=== PATIENT | male | born 1990 | race Hispanic/Latino ===

== ENCOUNTER 2018-08-20 13:43 | Inpatient (IN) | payer SELFPAY ==
--- NOTE | 2018-08-20 14:12 | Emergency Department Report ---
ED Syncope HPI - General Chief Complaint: Syncope Stated Complaint: SYNCOPAL EPISODE Time Seen by Provider: 08/20/18 14:01 Source: patient - History of Present Illness Initial Comments: Patient is 28 years old male with history of sciatica no other significant past medical history. Patient presented to the ER complaining of one episode of syncopal episode that happened while he was visiting one of his family member in the hospital. Patient denied any headache, weakness, numbness or tingling sensation. Patient denied any chest pain or shortness of breath. Patient stated that he has been having right knee swelling for the last week. Patient denied any injury. Timing/Prior Episodes: no prior history, single episode today Precipitating Factors: Positive: none Context: standing Loss of Consciousness: no loss of consciousness Current Symptoms: back to normal - Related Data Allergies/Adverse Reactions: Allergies No Known Allergies Allergy (Verified 08/20/18 15:39) Home Medications: Ambulatory Orders No Known Home Medications [No Reported Home Medications] 08/20/18 ED Review of Systems ROS: Stated complaint: SYNCOPAL EPISODE Other details as noted in HPI Comment: All other systems reviewed and negative Constitutional: denies: chills, fever Cardiovascular: denies: chest pain, palpitations Gastrointestinal: denies: abdominal pain, nausea Musculoskeletal: joint swelling (right knee). denies: back pain Neurological: denies: headache, weakness, numbness, paresthesias, confusion ED Past Medical Hx - Past Medical History Previous Medical History?: No - Surgical History Past Surgical History?: Yes Additional Surgical History: knee - Social History Smoking Status: Never Smoker Substance Use Type: None - Medications Home Medications: Home Medications Medication Instructions Recorded Confirmed Last Taken Type No Known Home Medications [No 08/20/18 08/20/18 Unknown History Reported Home Medications] ED Physical Exam - General Limitations: No Limitations General appearance: alert, in no apparent distress - Head Head exam: Present: atraumatic, normocephalic, normal inspection - Eye Eye exam: Present: normal appearance, PERRL - ENT ENT exam: Present: normal exam, normal orophraynx, mucous membranes moist, TM's normal bilaterally - Neck Neck exam: Present: normal inspection, full ROM. Absent: tenderness, meningismus, lymphadenopathy, thyromegaly - Respiratory Respiratory exam: Present: normal lung sounds bilaterally - Cardiovascular Cardiovascular Exam: Present: regular rate, normal rhythm, normal heart sounds - GI/Abdominal GI/Abdominal exam: Present: soft, normal bowel sounds. Absent: distended, tenderness, guarding, rebound, rigid, organomegaly, mass, bruit, pulsatile mass, hernia - Extremities Exam Extremities exam: Present: normal inspection, full ROM, normal capillary refill, other (right knee swelling, full range of motion.) - Back Exam Back exam: Present: normal inspection, full ROM. Absent: tenderness, CVA tenderness (R), CVA tenderness (L), muscle spasm, paraspinal tenderness, vertebral tenderness - Neurological Exam Neurological exam: Present: alert, oriented X3, CN II-XII intact - Psychiatric Psychiatric exam: Present: normal mood - Skin Skin exam: Present: warm, intact, normal color ED Course Vital Signs 08/20/18 13:50 Temperature 98 F Pulse Rate 87 Respiratory 16 Rate Blood Pressure 113/65 O2 Sat by Pulse 97 Oximetry - Joint Aspiration/Injection Consent Obtained: written consent Time Out Performed: Yes Indications: R/O septic arthritis Side of Body: right Joint Aspirated: knee Skin Prep: sterile prep and drape Local Anesthesia Used: Lidocaine 2% Amount of Anesthesia Used (mls): 5 Needle Size Used: 18G Syringe Size Used: 10cc Fluid Obtained: bloody Total Fluid Obtained (mls): 0 Patient Tolerated Procedure: well, no complications Complications: none ED Medical Decision Making - Lab Data Result diagrams: 08/20/18 14:10 08/20/18 14:10 - Radiology Data Radiology results: report reviewed - Medical Decision Making Patient is 28 years old male with history of sciatica no other significant past medical history. Patient presented to the ER complaining of one episode of syncopal episode that happened while he was visiting one of his family member in the hospital. Patient denied any headache, weakness, numbness or tingling sensation. Patient denied any chest pain or shortness of breath. Patient stated that he has been having right knee swelling for the last week. Patient denied any injury. Patient labs reviewed any cell white count of 18.9. Given his right knee swelling possibility of septic arthritis. Right knee joints or peripheral respiration but unfortunately unable to obtain synovial fluid. Patient given vancomycin 1 g and Rocephin 1 g. I discussed the patient is Dr. Umaña, he agreed to admit the patient to medical service for further management. Critical care attestation.: If time is entered above; I have spent that time in minutes in the direct care of this critically ill patient, excluding procedure time. ED Disposition Clinical Impression: Syncope, Septic arthritis of knee, right Disposition: [id number] OP ADMIT IP TO THIS HOSP Is pt being admited?: Yes Condition: Stable Instructions: Syncope (ED)
[2018-08-20 14:21] LABS: Basophils # (Auto) 0.1 K/mm3 (0.0-0.1); Basophils % (Auto) 0.3 % (0.0-1.8); Eosinophils # (Auto) 0.1 K/mm3 (0.0-0.4); Eosinophils % (Auto) 0.4 % (0.0-4.3); Hematocrit 42.1 % (35.5-45.6); Hemoglobin 14.1 gm/dl (11.8-15.2); Lymphocytes # (Auto) 1.6 K/mm3 (1.2-5.4); Lymphocytes % (Auto) 8.7 % (13.4-35.0); Mean Corpuscular HGB Conc 34 % (32-34); Mean Corpuscular Volume 96 fl (84-94); Monocytes # (Auto) 2.8 K/mm3 (0.0-0.8); Platelet Count 272 K/mm3 (140-440); Red Blood Count 4.37 M/mm3 (3.65-5.03); Red Cell Distribution Width 12.8 % (13.2-15.2)
[2018-08-20 14:38] LABS: BUN/Creatinine Ratio 20; Blood Urea Nitrogen 22 mg/dL (9-20); Calcium 9.3 mg/dL (8.4-10.2); Hemolysis Index 6
--- NOTE | 2018-08-20 14:40 | XRay Report ---
PROCEDURE: XR KNEE 3V RT TECHNIQUE: 3 views of the right knee. HISTORY: RT KNEE SWELLING COMPARISON: None FINDINGS: There is anterior soft tissue swelling. There is no acute fracture seen. There is no dislocation seen. There is no evidence for joint effusion. There is no focal osseous lesion identified. IMPRESSION: Anterior soft tissue swelling. No convincing joint effusion or bony abnormality. This document is electronically signed by Casie Moore MD., Aug 20 2018 02:39:13 PM ET
[2018-08-20] MEDS ORDERED: ROCEPHIN/NS 1 GM/50 ML 1 GM/50 ML BAG IV ONE (15:37)
[2018-08-20] MEDS ORDERED: VANCOMYCIN/NS 1 GM/250 ML 1 GM/250 ML BAG IV ONE (15:37)
[2018-08-20] MEDS ORDERED: NACL 0.9% 1000 ML 1,000 ML IV ONE (15:38)
[2018-08-20] MEDS ORDERED: XYLOCAINE 2% INFILTRATI ONE (16:13)
[2018-08-20 16:22] LABS: Bilirubin,Urine NEG (Negative); Blood,Urine NEG (Negative); Color,Urine Yellow (Yellow); Mucus,Urine 2+ /HPF; Protein,Urine <15 mg/dL mg/dL (Negative); RBC,Urine < 1.0 /HPF (0.0-6.0); Urobilinogen,Urine < 2.0 mg/dL (<2.0)
[2018-08-20 16:29] LABS: Amphetamine Screen,Urine PRESUMPTIVE NEGATIVE; Benzodiazepines Screen,Urine PRESUMPTIVE NEGATIVE; Cocaine Screen,Urine PRESUMPTIVE NEGATIVE; Opiate Screen,Urine PRESUMPTIVE NEGATIVE
[2018-08-20 16:54] LABS: Cannabinoid Screen,Urine PRESUMPTIVE POSITIVE; Methadone Screen,Urine PRESUMPTIVE NEGATIVE
--- NOTE | 2018-08-20 19:45 | History and Physical Report ---
History of Present Illness Date of examination: 08/20/18 Date of admission: 08/20/18 16:40 Chief complaint: Rt knee pain and swelling History of present illness: Patient is 28 years old male with nosig pmh comes in for Rt Knee swelling.Works as renovation specialist.Minor trauma to knee recuirrently whish is work related.No fever or chills. Incidentalsyncope while visiting a friend in the hospital which he attributes to Dehydration.No chest pain.Pain Rt Knee about 11/19 --sharp and intermittent Past Medical History Previous Medical History?: No Surgical History Past Surgical History?: Yes Additional Surgical History: knee Social History Smoking Status: Never Smoker Substance Use Type: None Review of Systems ROS: Stated complaint: SYNCOPAL EPISODE Other details as noted in HPI Comment: All other systems reviewed and negative Constitutional: denies: chills, fever Cardiovascular: denies: chest pain, palpitations Gastrointestinal: denies: abdominal pain, nausea Musculoskeletal: joint swelling (right knee). denies: back pain Neurological: denies: headache, weakness, numbness, paresthesias, confusion Medications and Allergies Allergies Allergy/AdvReac Type Severity Reaction Status Date / Time No Known Allergies Allergy Verified 08/20/18 15:39 Home Medications Medication Instructions Recorded Confirmed Last Taken Type No Known Home Medications [No 08/20/18 08/20/18 Unknown History Reported Home Medications] Exam - Constitutional Vitals: Temp Pulse Resp BP Pulse Ox 99.1 F 89 18 106/53 96 08/20/18 18:45 08/20/18 18:45 08/20/18 18:45 08/20/18 18:45 08/20/18 18:45 General appearance: Present: no acute distress, well-nourished - EENT Eyes: Present: PERRL ENT: hearing intact, clear oral mucosa - Neck Neck: Present: supple, normal ROM - Respiratory Respiratory effort: normal Respiratory: bilateral: CTA - Cardiovascular Heart rate: 78 Rhythm: regular Heart Sounds: Present: S1 & S2. Absent: rub, click - Extremities Extremities: no ischemia, pulses intact, pulses symmetrical, No edema, abnormal (Rt knee swollen and warm to touch) Peripheral Pulses: within normal limits - Abdominal General gastrointestinal: Present: soft, non-tender, non-distended, normal bowel sounds Male genitourinary: Present: normal - Integumentary Integumentary: Present: clear, warm, dry - Musculoskeletal Musculoskeletal: gait normal, strength equal bilaterally - Psychiatric Psychiatric: appropriate mood/affect, intact judgment & insight - Neurologic Neurologic: CNII-XII intact, moves all extremities Results - Labs CBC & Chem 7: 08/21/18 05:46 08/20/18 14:10 Labs: Laboratory Last Values WBC 18.9 K/mm3 (4.5-11.0) H 08/20/18 14:10 RBC 4.37 M/mm3 (3.65-5.03) 08/20/18 14:10 Hgb 14.1 gm/dl (11.8-15.2) 08/20/18 14:10 Hct 42.1 % (35.5-45.6) 08/20/18 14:10 MCV 96 fl (84-94) H 08/20/18 14:10 MCH 32 pg (28-32) 08/20/18 14:10 MCHC 34 % (32-34) 08/20/18 14:10 RDW 12.8 % (13.2-15.2) L 08/20/18 14:10 Plt Count 272 K/mm3 (140-440) 08/20/18 14:10 Lymph % (Auto) 8.7 % (13.4-35.0) L 08/20/18 14:10 [place] % (Auto) 15.0 % (0.0-7.3) H 08/20/18 14:10 Eos % (Auto) 0.4 % (0.0-4.3) 08/20/18 14:10 Baso % (Auto) 0.3 % (0.0-1.8) 08/20/18 14:10 Lymph # 1.6 K/mm3 (1.2-5.4) 08/20/18 14:10 [place] # 2.8 K/mm3 (0.0-0.8) H 08/20/18 14:10 Eos # 0.1 K/mm3 (0.0-0.4) 08/20/18 14:10 Baso # 0.1 K/mm3 (0.0-0.1) 08/20/18 14:10 Seg Neutrophils % 75.6 % (40.0-70.0) H 08/20/18 14:10 Seg Neutrophils # 14.3 K/mm3 (1.8-7.7) H 08/20/18 14:10 Sodium 138 mmol/L (137-145) 08/20/18 14:10 Potassium 3.9 mmol/L (3.6-5.0) 08/20/18 14:10 Chloride 99.8 mmol/L (98-107) 08/20/18 14:10 Carbon Dioxide 26 mmol/L (22-30) 08/20/18 14:10 16 mmol/L 08/20/18 14:10 BUN 22 mg/dL (9-20) H 08/20/18 14:10 1.1 mg/dL (0.8-1.5) 08/20/18 14:10 Estimated GFR > 60 ml/min 08/20/18 14:10 20 % 08/20/18 14:10 Glucose 97 mg/dL (75-100) 08/20/18 14:10 POC Glucose 87 (70-105) 08/20/18 13:54 Calcium 9.3 mg/dL (8.4-10.2) 08/20/18 14:10 Yellow (Yellow) 08/20/18 Unknown Slightly-cloudy (Clear) 08/20/18 Unknown 5.0 (5.0-7.0) 08/20/18 Unknown Ur Specific [place] 1.023 (1.003-1.030) 08/20/18 Unknown <15 mg/dl mg/dL (Negative) 08/20/18 Unknown Neg mg/dL (Negative) 08/20/18 Unknown Neg mg/dL (Negative) 08/20/18 Unknown Neg (Negative) 08/20/18 Unknown Neg (Negative) 08/20/18 Unknown Neg (Negative) 08/20/18 Unknown < 2.0 mg/dL (<2.0) 08/20/18 Unknown Ur Leukocyte Esterase Neg (Negative) 08/20/18 Unknown 1.0 /HPF (0.0-6.0) 08/20/18 Unknown < 1.0 /HPF (0.0-6.0) 08/20/18 Unknown 2+ /HPF 08/20/18 Unknown Presumptive negative 08/20/18 Unknown Presumptive negative 08/20/18 Unknown Ur Barbiturates Screen Presumptive negative 08/20/18 Unknown Ur Phencyclidine Scrn Presumptive negative 08/20/18 Unknown Ur Amphetamines Screen Presumptive negative 08/20/18 Unknown U Benzodiazepines Scrn Presumptive negative 08/20/18 Unknown Presumptive negative 08/20/18 Unknown U Marijuana (THC) Screen Presumptive positive 08/20/18 Unknown Disclamer 08/20/18 Unknown Short CBC 08/20/18 08/21/18 Range/Units 14:10 05:46 WBC 18.9 H 14.2 H (4.5-11.0) K/mm3 Hgb 14.1 13.9 (11.8-15.2) gm/dl Hct 42.1 41.7 (35.5-45.6) % Plt Count 272 272 (140-440) K/mm3 BMP 08/20/18 14:10 Sodium 138 Potassium 3.9 Chloride 99.8 Carbon Dioxide 26 BUN 22 H Creatinine 1.1 Glucose 97 Calcium 9.3 Urine 08/20/18 Range/Units Unknown Urine Color Yellow (Yellow) Urine pH 5.0 (5.0-7.0) Ur Specific [place] 1.023 (1.003-1.030) Urine Protein <15 mg/dl (Negative) mg/dL Urine Glucose (UA) Neg (Negative) mg/dL - Imaging and Cardiology EKG: report reviewed (NSR 90/min) Imaging and Cardiology: Rt Knee IMPRESSION: Anterior soft tissue swelling. No convincing joint effusion or bony abnormality. Assessment and Plan Advance Directives: Yes (Full code) VTE prophylaxis?: Chemical Plan of care discussed with patient/family: Yes - Patient Problems (1) Septic arthritis of knee, right Current Visit: Yes Status: Acute Qualifiers: Septic arthritis organism: due to unspecified organism Qualified Code(s): M00.9 - Pyogenic arthritis, unspecified Plan to address problem: Arthrocentesis attempted in ED by ED physician-unsuccessful IV abx for now Ortho consult requested (2) Syncope Current Visit: Yes Status: Acute Qualifiers: Encounter type: initial encounter Plan to address problem: Vasovagal CDS ordered IV fluids (3) DVT prophylaxis Current Visit: Yes Status: Acute Plan to address problem: On Lovenox and GI prophylaxis
[2018-08-20] MEDS ORDERED: ZOFRAN IV PRN (19:47)
[2018-08-20] MEDS ORDERED: REGLAN IV PRN (19:47)
[2018-08-20] MEDS ORDERED: TYLENOL PO PRN (19:47)
[2018-08-20] MEDS ORDERED: VANCOMYCIN PHARMACY TO DOSE IV SCH (20:00)
[2018-08-20] MEDS: DILAUDID IV PRN (20:29)
[2018-08-20] MEDS: SODIUM CHLORIDE FLUSH SYRINGE 10 ML IV PRN (20:30)
[2018-08-20] MEDS: NACL 0.9% 1000 ML 1,000 ML IV SCH (21:28)
[2018-08-20] MEDS: PEPCID IV SCH (21:29)
[2018-08-20] MEDS: UNASYN/NS 3 GM/100 ML 3 GM/100 ML BAG IV SCH (21:55)
[2018-08-20] MEDS: SODIUM CHLORIDE FLUSH SYRINGE 10 ML IV SCH (22:00)
[2018-08-21] MEDS: DILAUDID IV PRN ×2 (00:02→10:37)
[2018-08-21] MEDS: UNASYN/NS 3 GM/100 ML 3 GM/100 ML BAG IV SCH ×4 (01:32→17:47)
[2018-08-21] MEDS: PERCOCET 5/325 PO PRN ×3 (06:17→21:57)
[2018-08-21 06:35] LABS: Hematocrit 41.7 % (35.5-45.6); Hemoglobin 13.9 gm/dl (11.8-15.2); Mean Corpuscular HGB Conc 33 % (32-34); Mean Corpuscular Volume 96 fl (84-94); Platelet Count 272 K/mm3 (140-440); Red Blood Count 4.36 M/mm3 (3.65-5.03)
[2018-08-21 06:59] LABS: Alanine Aminotransferase 21 units/L (7-56); Albumin 3.6 g/dL (3.9-5); BUN/Creatinine Ratio 17; Blood Urea Nitrogen 17 mg/dL (9-20); Calcium 9.4 mg/dL (8.4-10.2); Hemolysis Index 5
[2018-08-21 08:03] LABS: Basophils % (Manual) 0 % (0.0-1.8); Total Cells Counted 100
[2018-08-21 08:07] LABS: Anisocytosis 1+; Macrocytosis 1+; Ovalocytes Few; Platelet Estimate Consistent w Auto
[2018-08-21] MEDS: PEPCID IV SCH ×2 (10:23→21:58)
[2018-08-21] MEDS: SODIUM CHLORIDE FLUSH SYRINGE 10 ML IV SCH ×2 (10:40→23:05)
[2018-08-21] MEDS: VANCOMYCIN 1,500 MG in NACL 0.9% 500 ML 500 ML IV SCH ×2 (14:21→21:48)
--- NOTE | 2018-08-21 18:18 | Progress Note ---
Assessment and Plan Assessment and plan: --Syncope; probably vasovagal; Fall precautions, syncope workup in progress Physical therapy as needed --Possible traumatic versus septic effusion right knee; Empiric antibiotics, pain medications, unsuccessful arthrocentesis in the ER Orthopedic consult --Leukocytosis; empiric antibiotics follow cultures Follow arthrocentesis and fluid analysis --DVT prophylaxis; Lovenox --Tobacco use; smoking cessation nicotine patch as needed --Recreational drug use; marijuana, advised to quit Closely monitor the patient and adjust management as needed Plan of care is reviewed with the patient and his nurse History Interval history: Patient seen and examined this morning medical records reviewed Complaints of some pain in the knee and swelling No new episodes of syncope or dizziness Vital signs noted Hospitalist Physical - Constitutional Vitals: Temp Pulse Resp BP Pulse Ox 98.2 F 79 18 120/69 97 08/21/18 11:58 08/21/18 11:58 08/21/18 11:58 08/21/18 11:58 08/21/18 11:58 General appearance: Present: no acute distress, well-nourished - EENT Eyes: Present: PERRL, EOM intact - Neck Neck: Present: supple, normal ROM - Respiratory Respiratory effort: normal Respiratory: bilateral: diminished, negative: rales, rhonchi, wheezing - Cardiovascular Rhythm: regular Heart Sounds: Present: S1 & S2 - Extremities Extremities: abnormal (right knee swelling) - Abdominal General gastrointestinal: soft, non-tender, non-distended, normal bowel sounds - Integumentary Integumentary: Present: clear, warm - Psychiatric Psychiatric: appropriate mood/affect, cooperative - Neurologic Neurologic: CNII-XII intact, moves all extremities Results - Labs CBC & Chem 7: 08/22/18 05:53 08/21/18 05:46 Labs: Laboratory Last Values WBC 14.2 K/mm3 (4.5-11.0) H 08/21/18 05:46 RBC 4.36 M/mm3 (3.65-5.03) 08/21/18 05:46 Hgb 13.9 gm/dl (11.8-15.2) 08/21/18 05:46 Hct 41.7 % (35.5-45.6) 08/21/18 05:46 MCV 96 fl (84-94) H 08/21/18 05:46 MCH 32 pg (28-32) 08/21/18 05:46 MCHC 33 % (32-34) 08/21/18 05:46 RDW 13.0 % (13.2-15.2) L 08/21/18 05:46 Plt Count 272 K/mm3 (140-440) 08/21/18 05:46 Lymph % (Auto) 8.7 % (13.4-35.0) L 08/20/18 14:10 [place] % (Auto) [employer]ic 08/21/18 05:46 Eos % (Auto) 0.4 % (0.0-4.3) 08/20/18 14:10 Baso % (Auto) 0.3 % (0.0-1.8) 08/20/18 14:10 Lymph # 1.6 K/mm3 (1.2-5.4) 08/20/18 14:10 [place] # 2.8 K/mm3 (0.0-0.8) H 08/20/18 14:10 Eos # 0.1 K/mm3 (0.0-0.4) 08/20/18 14:10 Baso # 0.1 K/mm3 (0.0-0.1) 08/20/18 14:10 Add Manual Diff Complete 08/21/18 05:46 Total Counted 100 08/21/18 05:46 Seg Neutrophils % 75.6 % (40.0-70.0) H 08/20/18 14:10 Seg Neuts % (Manual) 72.0 % (40.0-70.0) H 08/21/18 05:46 0 % 08/21/18 05:46 6.0 % (13.4-35.0) L 08/21/18 05:46 Reactive Lymphs % (Man) 0 % 08/21/18 05:46 20.0 % (0.0-7.3) H 08/21/18 05:46 2.0 % (0.0-4.3) 08/21/18 05:46 0 % (0.0-1.8) 08/21/18 05:46 0 % 08/21/18 05:46 0 % 08/21/18 05:46 0 % 08/21/18 05:46 0 % 08/21/18 05:46 Nucleated RBC % Not Reportable 08/21/18 05:46 Seg Neutrophils # 14.3 K/mm3 (1.8-7.7) H 08/20/18 14:10 Seg Neutrophils # Man 10.2 K/mm3 (1.8-7.7) H 08/21/18 05:46 Band Neutrophils # 0.0 K/mm3 08/21/18 05:46 0.9 K/mm3 (1.2-5.4) L 08/21/18 05:46 Abs React Lymphs (Man) 0.0 K/mm3 08/21/18 05:46 2.8 K/mm3 (0.0-0.8) H 08/21/18 05:46 0.3 K/mm3 (0.0-0.4) 08/21/18 05:46 0.0 K/mm3 (0.0-0.1) 08/21/18 05:46 0.0 K/mm3 08/21/18 05:46 0.0 K/mm3 08/21/18 05:46 0.0 K/mm3 08/21/18 05:46 Blast Cells # 0.0 K/mm3 08/21/18 05:46 WBC Morphology Not Reportable 08/21/18 05:46 WBC Morphology TNR 08/21/18 05:46 Hypersegmented Neuts Not Reportable 08/21/18 05:46 Hyposegmented Neuts Not Reportable 08/21/18 05:46 Hypogranular Neuts Not Reportable 08/21/18 05:46 Not Reportable 08/21/18 05:46 Not Reportable 08/21/18 05:46 Not Reportable 08/21/18 05:46 Not Reportable 08/21/18 05:46 Not Reportable 08/21/18 05:46 Not Reportable 08/21/18 05:46 Consistent w auto 08/21/18 05:46 Not Reportable 08/21/18 05:46 Plt Clumps, EDTA Not Reportable 08/21/18 05:46 Not Reportable 08/21/18 05:46 Not Reportable 08/21/18 05:46 Not Reportable 08/21/18 05:46 Plt Morphology Comment Not Reportable 08/21/18 05:46 RBC Morphology Not Reportable 08/21/18 05:46 Dimorphic RBCs Not Reportable 08/21/18 05:46 Not Reportable 08/21/18 05:46 Not Reportable 08/21/18 05:46 Not Reportable 08/21/18 05:46 1+ 08/21/18 05:46 Not Reportable 08/21/18 05:46 1+ 08/21/18 05:46 Not Reportable 08/21/18 05:46 Not Reportable 08/21/18 05:46 Not Reportable 08/21/18 05:46 Not Reportable 08/21/18 05:46 Not Reportable 08/21/18 05:46 Few 08/21/18 05:46 Not Reportable 08/21/18 05:46 Not Reportable 08/21/18 05:46 Not Reportable 08/21/18 05:46 Not Reportable 08/21/18 05:46 Not Reportable 08/21/18 05:46 Not Reportable 08/21/18 05:46 Not Reportable 08/21/18 05:46 Acanthocytes (Spur) Not Reportable 08/21/18 05:46 Rouleaux Not Reportable 08/21/18 05:46 Not Reportable 08/21/18 05:46 Not Reportable 08/21/18 05:46 Not Reportable 08/21/18 05:46 Not Reportable 08/21/18 05:46 Hem Pathologist Commnt No 08/21/18 05:46 Sodium 143 mmol/L (137-145) 08/21/18 05:46 Potassium 3.8 mmol/L (3.6-5.0) 08/21/18 05:46 Chloride 103.7 mmol/L (98-107) 08/21/18 05:46 Carbon Dioxide 28 mmol/L (22-30) 08/21/18 05:46 15 mmol/L 08/21/18 05:46 BUN 17 mg/dL (9-20) 08/21/18 05:46 1.0 mg/dL (0.8-1.5) 08/21/18 05:46 Estimated GFR > 60 ml/min 08/21/18 05:46 17 % 08/21/18 05:46 Glucose 97 mg/dL (75-100) 08/21/18 05:46 POC Glucose 87 (70-105) 08/20/18 13:54 5.7 % (4-6) 08/20/18 20:09 Calcium 9.4 mg/dL (8.4-10.2) 08/21/18 05:46 0.50 mg/dL (0.1-1.2) 08/21/18 05:46 AST 20 units/L (5-40) 08/21/18 05:46 ALT 21 units/L (7-56) 08/21/18 05:46 86 units/L (35-129) 08/21/18 05:46 6.4 g/dL (6.3-8.2) 08/21/18 05:46 3.6 g/dL (3.9-5) L 08/21/18 05:46 1.3 % 08/21/18 05:46 Yellow (Yellow) 08/20/18 Unknown Slightly-cloudy (Clear) 08/20/18 Unknown 5.0 (5.0-7.0) 08/20/18 Unknown Ur Specific [place] 1.023 (1.003-1.030) 08/20/18 Unknown <15 mg/dl mg/dL (Negative) 08/20/18 Unknown Neg mg/dL (Negative) 08/20/18 Unknown Neg mg/dL (Negative) 08/20/18 Unknown Neg (Negative) 08/20/18 Unknown Neg (Negative) 08/20/18 Unknown Neg (Negative) 08/20/18 Unknown < 2.0 mg/dL (<2.0) 08/20/18 Unknown Ur Leukocyte Esterase Neg (Negative) 08/20/18 Unknown 1.0 /HPF (0.0-6.0) 08/20/18 Unknown < 1.0 /HPF (0.0-6.0) 08/20/18 Unknown 2+ /HPF 08/20/18 Unknown Presumptive negative 08/20/18 Unknown Presumptive negative 08/20/18 Unknown Ur Barbiturates Screen Presumptive negative 08/20/18 Unknown Ur Phencyclidine Scrn Presumptive negative 08/20/18 Unknown Ur Amphetamines Screen Presumptive negative 08/20/18 Unknown U Benzodiazepines Scrn Presumptive negative 08/20/18 Unknown Presumptive negative 08/20/18 Unknown U Marijuana (THC) Screen Presumptive positive 08/20/18 Unknown Disclamer 08/20/18 Unknown Active Medications - Current Medications Current Medications: Generic Name Dose Route Start Last Admin Trade Name Freq PRN Reason Stop Dose Admin Acetaminophen 650 mg 08/20/18 19:47 Tylenol PO Q4H PRN Pain MILD(1-3)/Fever >100.5/JHA Famotidine 20 mg 08/20/18 22:00 08/21/18 10:23 Pepcid IV 20 mg BID MILLIE Administration Hydromorphone HCl 1 mg 08/21/18 12:41 Dilaudid IV Q6HR PRN Pain , Severe (7-10) Sodium Chloride 1,000 mls @ 75 mls/hr 08/20/18 20:00 08/20/18 21:28 Nacl 0.9% 1000 Ml IV 75 mls/hr DIRECT MILLIE Administration Ampicillin Sodium/Sulbactam Sodium 3 gm in 100 mls @ 100 mls/hr 08/20/18 20:00 08/21/18 17:47 Unasyn/Ns 3 Gm/100 Ml IV 100 mls/hr Q6HR MILLIE Administration Protocol Vancomycin HCl 1,500 mg/ 530 mls @ 333.333 mls/hr 08/21/18 14:00 08/21/18 14:21 Sodium Chloride IV 333.333 mls/hr Q8HR MILLIE Administration Metoclopramide HCl 10 mg 08/20/18 19:47 Reglan IV Q6H PRN Nausea And Vomiting Ondansetron HCl 4 mg 08/20/18 19:47 Zofran IV Q3H PRN Nausea And Vomiting Oxycodone/Acetaminophen 1 tab 08/20/18 19:47 08/21/18 12:46 Percocet 5/325 PO 1 tab Q6H PRN Administration Pain, Moderate (4-6) Sodium Chloride 10 ml 08/20/18 22:00 08/21/18 10:40 Sodium Chloride Flush Syringe 10 Ml IV 10 ml BID MILLIE Administration Sodium Chloride 10 ml 08/20/18 19:47 08/20/18 20:30 Sodium Chloride Flush Syringe 10 Ml IV 10 ml PRN PRN Administration LINE FLUSH
[2018-08-21] MEDS: NACL 0.9% 1000 ML 1,000 ML IV SCH (21:46)
[2018-08-22] MEDS: UNASYN/NS 3 GM/100 ML 3 GM/100 ML BAG IV SCH ×4 (01:20→19:40)
[2018-08-22] MEDS: VANCOMYCIN 1,500 MG in NACL 0.9% 500 ML 500 ML IV SCH ×3 (06:15→21:55)
[2018-08-22 06:26] LABS: Hematocrit 39.1 % (35.5-45.6); Hemoglobin 13.2 gm/dl (11.8-15.2); Mean Corpuscular HGB Conc 34 % (32-34); Mean Corpuscular Volume 96 fl (84-94); Platelet Count 253 K/mm3 (140-440); Red Blood Count 4.07 M/mm3 (3.65-5.03); Red Cell Distribution Width 12.8 % (13.2-15.2)
[2018-08-22] MEDS: DILAUDID IV PRN ×3 (06:39→19:47)
[2018-08-22] MEDS: SODIUM CHLORIDE FLUSH SYRINGE 10 ML IV PRN (06:40)
[2018-08-22 09:57] LABS: Anisocytosis Few; Basophils % (Manual) 0 % (0.0-1.8); Platelet Estimate Consistent w Auto; Promyelocytes # (Manual) 0.1 K/mm3; Total Cells Counted 100
[2018-08-22] MEDS: PEPCID IV SCH ×2 (12:05→21:55)
[2018-08-22] MEDS: SODIUM CHLORIDE FLUSH SYRINGE 10 ML IV SCH ×2 (12:09→21:55)
--- NOTE | 2018-08-22 17:50 | Consultation ---
History of Present Illness - HPI Consult date: 08/22/18 Consult reason: joint pain History of present illness: 29 y/o male with c/o right pain and swelling for past 1 wk, states sustained minor injury at work... Medications and Allergies Allergies Allergy/AdvReac Type Severity Reaction Status Date / Time No Known Allergies Allergy Verified 08/20/18 15:39 Home Medications Medication Instructions Recorded Confirmed Last Taken Type No Known Home Medications [No 08/20/18 08/20/18 Unknown History Reported Home Medications] Active Meds: Active Medications Acetaminophen (Tylenol) 650 mg PO Q4H PRN PRN Reason: Pain MILD(1-3)/Fever >100.5/JHA Famotidine (Pepcid) 20 mg IV BID [facility] Last Admin: 08/22/18 12:05 Dose: 20 mg Documented by: Hydromorphone HCl (Dilaudid) 1 mg IV Q6HR PRN PRN Reason: Pain , Severe (7-10) Last Admin: 08/22/18 13:32 Dose: 1 mg Documented by: Sodium Chloride (Nacl 0.9% 1000 Ml) 1,000 mls @ 75 mls/hr IV DIRECT MILLIE Last Admin: 08/21/18 21:46 Dose: 75 mls/hr Documented by: Ampicillin Sodium/Sulbactam Sodium (Unasyn/Ns 3 Gm/100 Ml) 3 gm in 100 mls @ 100 mls/hr IV Q6HR [facility]; Protocol Last Admin: 08/22/18 12:04 Dose: 100 mls/hr Documented by: Vancomycin HCl 1,500 mg/ (Sodium Chloride) 530 mls @ 333.333 mls/hr IV Q8HR MILLIE Last Admin: 08/22/18 17:03 Dose: 333.333 mls/hr Documented by: Metoclopramide HCl (Reglan) 10 mg IV Q6H PRN PRN Reason: Nausea And Vomiting Ondansetron HCl (Zofran) 4 mg IV Q3H PRN PRN Reason: Nausea And Vomiting Oxycodone/Acetaminophen (Percocet 5/325) 1 tab PO Q6H PRN PRN Reason: Pain, Moderate (4-6) Last Admin: 08/21/18 21:57 Dose: 1 tab Documented by: Sodium Chloride (Sodium Chloride Flush Syringe 10 Ml) 10 ml IV BID [facility] Last Admin: 08/22/18 12:09 Dose: 10 ml Documented by: Sodium Chloride (Sodium Chloride Flush Syringe 10 Ml) 10 ml IV PRN PRN PRN Reason: LINE FLUSH Last Admin: 08/22/18 06:40 Dose: 10 ml Documented by: Physical Examination - Physical exam Narrative exam: Right knee - 2-3 + effusion, no redness/erythema, active ROM 0-70 degree Eyes: PERRL ENT: Positive: clear oral mucosa Respiratory effort: normal Respiratory: bilateral: CTA Rhythm: regular Heart Sounds: Positive: S1 & S2 General gastrointestinal: Positive: soft, non-tender, non-distended, normal bowel sounds Integumentary: clear, warm, dry Neurologic: Positive: CNII-XII intact, moves all extremities, gait normal. Negative: focal deficits - Cervical Spine Neck pain: none Tenderness with palpation: none Full ROM: yes ROM: flexion: normal ROM: extension: normal ROM: rotation right: normal ROM: rotation left: normal ROM: lateral flexion right: normal ROM: lateral flexion left: normal - Lumbar Spine Back pain: none Tenderness with palpation: none Appearance: normal Full ROM: yes ROM: flexion: normal ROM: extension: normal ROM: rotation right: normal ROM: rotation left: normal ROM: lateral flexion right: normal ROM: lateral flexion left: normal Assessment and Plan right knee pain with large effusion aspiration done at bedside today with return of bloody aspirate fluid sent for cell count, C&S, etc...
--- NOTE | 2018-08-22 19:11 | Progress Note ---
Assessment and Plan Assessment and plan: --Syncope; probably vasovagal; no new episodes of syncope Fall precautions, ambulate as tolerated --Possible traumatic versus septic effusion right knee; Empiric antibiotics, pain medications, unsuccessful arthrocentesis in the ER Orthopedic evaluation, possible arthrocentesis and fluid analysis --Leukocytosis; trending down, empiric antibiotics follow cultures Follow arthrocentesis and fluid analysis --DVT prophylaxis; Lovenox --Tobacco use; smoking cessation nicotine patch as needed --Recreational drug use; marijuana, advised to quit Closely monitor the patient and adjust management as needed Plan of care reviewed with the patient and the family member at the bedside I also discussed with his nurse Disposition; Follow arthrocentesis, fluid analysis Possible discharge in 1-2 days if stable History Interval history: Patient seen and examined and medical records reviewed Admitted with traumatic knee effusion On empiric antibiotics to rule out septic arthritis Patient feels slightly better still complains of pain Vital signs noted Hospitalist Physical - Constitutional Vitals: Temp Pulse Resp BP Pulse Ox 98.3 F 84 20 116/80 96 08/22/18 12:25 08/22/18 05:29 08/22/18 12:25 08/22/18 12:25 08/22/18 11:00 General appearance: Present: no acute distress, well-nourished - EENT Eyes: Present: PERRL, EOM intact - Neck Neck: Present: supple, normal ROM - Respiratory Respiratory effort: normal Respiratory: bilateral: diminished, negative: rales, rhonchi, wheezing - Cardiovascular Rhythm: regular Heart Sounds: Present: S1 & S2 - Extremities Extremities: no ischemia, abnormal (large effusion right knee, mild tenderness to touch) - Abdominal General gastrointestinal: soft, non-tender, non-distended, normal bowel sounds - Integumentary Integumentary: Present: clear, warm - Psychiatric Psychiatric: appropriate mood/affect, cooperative - Neurologic Neurologic: CNII-XII intact, moves all extremities Results - Labs CBC & Chem 7: 08/22/18 05:53 08/21/18 05:46 Labs: Laboratory Last Values WBC 12.5 K/mm3 (4.5-11.0) H 08/22/18 05:53 RBC 4.07 M/mm3 (3.65-5.03) 08/22/18 05:53 Hgb 13.2 gm/dl (11.8-15.2) 08/22/18 05:53 Hct 39.1 % (35.5-45.6) 08/22/18 05:53 MCV 96 fl (84-94) H 08/22/18 05:53 MCH 33 pg (28-32) H 08/22/18 05:53 MCHC 34 % (32-34) 08/22/18 05:53 RDW 12.8 % (13.2-15.2) L 08/22/18 05:53 Plt Count 253 K/mm3 (140-440) 08/22/18 05:53 Lymph % (Auto) 8.7 % (13.4-35.0) L 08/20/18 14:10 Esmeralda % (Auto) [employer] 08/22/18 05:53 Eos % (Auto) 0.4 % (0.0-4.3) 08/20/18 14:10 Baso % (Auto) 0.3 % (0.0-1.8) 08/20/18 14:10 Lymph # 1.6 K/mm3 (1.2-5.4) 08/20/18 14:10 [place]mer[place]da # 2.8 K/mm3 (0.0-0.8) H 08/20/18 14:10 Eos # 0.1 K/mm3 (0.0-0.4) 08/20/18 14:10 Baso # 0.1 K/mm3 (0.0-0.1) 08/20/18 14:10 Add Manual Diff Complete 08/22/18 05:53 Total Counted 100 08/22/18 05:53 Seg Neutrophils % 75.6 % (40.0-70.0) H 08/20/18 14:10 Seg Neuts % (Manual) 75.0 % (40.0-70.0) H 08/22/18 05:53 0 % 08/22/18 05:53 15.0 % (13.4-35.0) 08/22/18 05:53 Reactive Lymphs % (Man) 0 % 08/22/18 05:53 6.0 % (0.0-7.3) 08/22/18 05:53 3.0 % (0.0-4.3) 08/22/18 05:53 0 % (0.0-1.8) 08/22/18 05:53 0 % 08/22/18 05:53 0 % 08/22/18 05:53 1.0 % 08/22/18 05:53 0 % 08/22/18 05:53 Nucleated RBC % Not Reportable 08/22/18 05:53 Seg Neutrophils # 14.3 K/mm3 (1.8-7.7) H 08/20/18 14:10 Seg Neutrophils # Man 9.4 K/mm3 (1.8-7.7) H 08/22/18 05:53 Band Neutrophils # 0.0 K/mm3 08/22/18 05:53 1.9 K/mm3 (1.2-5.4) 08/22/18 05:53 Abs React Lymphs (Man) 0.0 K/mm3 08/22/18 05:53 0.8 K/mm3 (0.0-0.8) 08/22/18 05:53 0.4 K/mm3 (0.0-0.4) 08/22/18 05:53 0.0 K/mm3 (0.0-0.1) 08/22/18 05:53 0.0 K/mm3 08/22/18 05:53 0.0 K/mm3 08/22/18 05:53 0.1 K/mm3 08/22/18 05:53 Blast Cells # 0.0 K/mm3 08/22/18 05:53 WBC Morphology Not Reportable 08/22/18 05:53 Hypersegmented Neuts Not Reportable 08/22/18 05:53 Hyposegmented Neuts Not Reportable 08/22/18 05:53 Hypogranular Neuts Not Reportable 08/22/18 05:53 Not Reportable 08/22/18 05:53 Not Reportable 08/22/18 05:53 Not Reportable 08/22/18 05:53 Not Reportable 08/22/18 05:53 Not Reportable 08/22/18 05:53 Not Reportable 08/22/18 05:53 Consistent w auto 08/22/18 05:53 Not Reportable 08/22/18 05:53 Plt Clumps, EDTA Not Reportable 08/22/18 05:53 Not Reportable 08/22/18 05:53 Not Reportable 08/22/18 05:53 Not Reportable 08/22/18 05:53 Plt Morphology Comment Not Reportable 08/22/18 05:53 RBC Morphology Not Reportable 08/22/18 05:53 Dimorphic RBCs Not Reportable 08/22/18 05:53 Not Reportable 08/22/18 05:53 Not Reportable 08/22/18 05:53 Not Reportable 08/22/18 05:53 Few 08/22/18 05:53 Not Reportable 08/22/18 05:53 Not Reportable 08/22/18 05:53 Not Reportable 08/22/18 05:53 Not Reportable 08/22/18 05:53 Not Reportable 08/22/18 05:53 Not Reportable 08/22/18 05:53 Not Reportable 08/22/18 05:53 Not Reportable 08/22/18 05:53 Not Reportable 08/22/18 05:53 Not Reportable 08/22/18 05:53 Not Reportable 08/22/18 05:53 Not Reportable 08/22/18 05:53 Not Reportable 08/22/18 05:53 Not Reportable 08/22/18 05:53 Not Reportable 08/22/18 05:53 Acanthocytes (Spur) Not Reportable 08/22/18 05:53 Rouleaux Not Reportable 08/22/18 05:53 Not Reportable 08/22/18 05:53 Not Reportable 08/22/18 05:53 Not Reportable 08/22/18 05:53 Not Reportable 08/22/18 05:53 Hem Pathologist Commnt No 08/22/18 05:53 Sodium 143 mmol/L (137-145) 08/21/18 05:46 Potassium 3.8 mmol/L (3.6-5.0) 08/21/18 05:46 Chloride 103.7 mmol/L (98-107) 08/21/18 05:46 Carbon Dioxide 28 mmol/L (22-30) 08/21/18 05:46 15 mmol/L 08/21/18 05:46 BUN 17 mg/dL (9-20) 08/21/18 05:46 1.0 mg/dL (0.8-1.5) 08/21/18 05:46 Estimated GFR > 60 ml/min 08/21/18 05:46 17 % 08/21/18 05:46 Glucose 97 mg/dL (75-100) 08/21/18 05:46 POC Glucose 87 (70-105) 08/20/18 13:54 5.7 % (4-6) 08/20/18 20:09 Calcium 9.4 mg/dL (8.4-10.2) 08/21/18 05:46 0.50 mg/dL (0.1-1.2) 08/21/18 05:46 AST 20 units/L (5-40) 08/21/18 05:46 ALT 21 units/L (7-56) 08/21/18 05:46 86 units/L (35-129) 08/21/18 05:46 6.4 g/dL (6.3-8.2) 08/21/18 05:46 3.6 g/dL (3.9-5) L 08/21/18 05:46 1.3 % 08/21/18 05:46 Yellow (Yellow) 08/20/18 Unknown Slightly-cloudy (Clear) 08/20/18 Unknown 5.0 (5.0-7.0) 08/20/18 Unknown Ur Specific [place] 1.023 (1.003-1.030) 08/20/18 Unknown <15 mg/dl mg/dL (Negative) 08/20/18 Unknown Neg mg/dL (Negative) 08/20/18 Unknown Neg mg/dL (Negative) 08/20/18 Unknown Neg (Negative) 08/20/18 Unknown Neg (Negative) 08/20/18 Unknown Neg (Negative) 08/20/18 Unknown < 2.0 mg/dL (<2.0) 08/20/18 Unknown Ur Leukocyte Esterase Neg (Negative) 08/20/18 Unknown 1.0 /HPF (0.0-6.0) 08/20/18 Unknown < 1.0 /HPF (0.0-6.0) 08/20/18 Unknown 2+ /HPF 08/20/18 Unknown Presumptive negative 08/20/18 Unknown Presumptive negative 08/20/18 Unknown Ur Barbiturates Screen Presumptive negative 08/20/18 Unknown Ur Phencyclidine Scrn Presumptive negative 08/20/18 Unknown Ur Amphetamines Screen Presumptive negative 08/20/18 Unknown U Benzodiazepines Scrn Presumptive negative 08/20/18 Unknown Presumptive negative 08/20/18 Unknown U Marijuana (THC) Screen Presumptive positive 08/20/18 Unknown Disclamer 08/20/18 Unknown Active Medications - Current Medications Current Medications: Generic Name Dose Route Start Last Admin Trade Name Freq PRN Reason Stop Dose Admin Acetaminophen 650 mg 08/20/18 19:47 Tylenol PO Q4H PRN Pain MILD(1-3)/Fever >100.5/JHA Famotidine 20 mg 08/20/18 22:00 08/22/18 12:05 Pepcid IV 20 mg BID MILLIE Administration Hydromorphone HCl 1 mg 08/21/18 12:41 08/22/18 13:32 Dilaudid IV 1 mg Q6HR PRN Administration Pain , Severe (7-10) Sodium Chloride 1,000 mls @ 75 mls/hr 08/20/18 20:00 08/21/18 21:46 Nacl 0.9% 1000 Ml IV 75 mls/hr DIRECT MILLIE Administration Ampicillin Sodium/Sulbactam Sodium 3 gm in 100 mls @ 100 mls/hr 08/20/18 20:00 08/22/18 12:04 Unasyn/Ns 3 Gm/100 Ml IV 100 mls/hr Q6HR MILLIE Administration Protocol Vancomycin HCl 1,500 mg/ 530 mls @ 333.333 mls/hr 08/21/18 14:00 08/22/18 17:03 Sodium Chloride IV 333.333 mls/hr Q8HR MILLIE Administration Metoclopramide HCl 10 mg 08/20/18 19:47 Reglan IV Q6H PRN Nausea And Vomiting Ondansetron HCl 4 mg 08/20/18 19:47 Zofran IV Q3H PRN Nausea And Vomiting Oxycodone/Acetaminophen 1 tab 08/20/18 19:47 08/21/18 21:57 Percocet 5/325 PO 1 tab Q6H PRN Administration Pain, Moderate (4-6) Sodium Chloride 10 ml 08/20/18 22:00 08/22/18 12:09 Sodium Chloride Flush Syringe 10 Ml IV 10 ml BID MILLIE Administration Sodium Chloride 10 ml 08/20/18 19:47 08/22/18 06:40 Sodium Chloride Flush Syringe 10 Ml IV 10 ml PRN PRN Administration LINE FLUSH
[2018-08-23] MEDS: UNASYN/NS 3 GM/100 ML 3 GM/100 ML BAG IV SCH ×4 (01:15→19:15)
[2018-08-23] MEDS: DILAUDID IV PRN ×2 (03:13→09:20)
[2018-08-23] MEDS: VANCOMYCIN 1,500 MG in NACL 0.9% 500 ML 500 ML IV SCH ×3 (05:53→22:27)
[2018-08-23] MEDS: NACL 0.9% 1000 ML 1,000 ML IV SCH (05:54)
[2018-08-23 06:36] LABS: Basophils % (Auto) 0.3 % (0.0-1.8); Eosinophils # (Auto) 0.4 K/mm3 (0.0-0.4); Eosinophils % (Auto) 3.4 % (0.0-4.3); Hematocrit 39.8 % (35.5-45.6); Hemoglobin 13.2 gm/dl (11.8-15.2); Lymphocytes # (Auto) 1.6 K/mm3 (1.2-5.4); Lymphocytes % (Auto) 14.5 % (13.4-35.0); Mean Corpuscular HGB Conc 33 % (32-34); Mean Corpuscular Volume 97 fl (84-94); Monocytes # (Auto) 1.5 K/mm3 (0.0-0.8); Monocytes % (Auto) 13.3 % (0.0-7.3); Platelet Count 270 K/mm3 (140-440); Red Blood Count 4.09 M/mm3 (3.65-5.03); Red Cell Distribution Width 12.6 % (13.2-15.2)
[2018-08-23 06:49] LABS: BUN/Creatinine Ratio 13; Blood Urea Nitrogen 10 mg/dL (9-20); Calcium 8.7 mg/dL (8.4-10.2); Hemolysis Index 25
[2018-08-23] MEDS: PEPCID IV SCH ×2 (09:20→22:27)
[2018-08-23] MEDS: SODIUM CHLORIDE FLUSH SYRINGE 10 ML IV SCH ×2 (09:22→22:27)
--- NOTE | 2018-08-23 11:23 | Progress Note ---
Assessment and Plan Assessment and plan: 28-year-old male patient was admitted through emergency room with right knee swelling after he had minor trauma, evaluated by orthopedic, underwent arthocentesis , bloody aspirate ,fluid analysis pending, on empiric antibiotics, recommend physical therapy --Possible traumatic versus septic effusion right knee; status post arthrocentesis Bloody effusion, fluid analysis pending, likely septic. --Syncope; probably vasovagal; no new episodes of syncope Fall precautions, ambulate as tolerated --Leukocytosis; trending down, empiric antibiotics follow cultures Follow arthrocentesis fluid analysis --DVT prophylaxis; Lovenox --Tobacco use; smoking cessation nicotine patch as needed --Recreational drug use; marijuana, advised to quit Physical therapy , gait training Closely monitor the patient and adjust management as needed Plan of care reviewed with the patient and the family member at the bedside I also discussed with his nurse Disposition; Follow arthrocentesis, fluid analysis Possible discharge home tomorrow if stable and cleared by orthopedic History Interval history: Patient seen and examined medical records reviewed No new events reported by the nursing Underwent arthrocentesis yesterday Fluid analysis pending Patient feels better complaints of pain Hospitalist Physical - Constitutional Vitals: Temp Pulse Resp BP Pulse Ox 98.2 F 89 18 115/57 97 08/23/18 04:57 08/23/18 04:57 08/23/18 04:57 08/23/18 04:57 08/23/18 04:57 General appearance: Present: no acute distress, well-nourished - EENT Eyes: Present: PERRL, EOM intact - Neck Neck: Present: supple, normal ROM - Respiratory Respiratory effort: normal Respiratory: negative: rales, rhonchi, wheezing - Cardiovascular Rhythm: regular Heart Sounds: Present: S1 & S2 - Extremities Extremities: no ischemia, No edema, abnormal (right knee swelling significantly improved) - Abdominal General gastrointestinal: soft, non-tender, non-distended, normal bowel sounds - Integumentary Integumentary: Present: clear, warm - Psychiatric Psychiatric: appropriate mood/affect, cooperative - Neurologic Neurologic: CNII-XII intact, moves all extremities Results - Labs CBC & Chem 7: 08/23/18 05:38 08/23/18 05:38 Labs: Laboratory Last Values WBC 11.1 K/mm3 (4.5-11.0) H 08/23/18 05:38 RBC 4.09 M/mm3 (3.65-5.03) 08/23/18 05:38 Hgb 13.2 gm/dl (11.8-15.2) 08/23/18 05:38 Hct 39.8 % (35.5-45.6) 08/23/18 05:38 MCV 97 fl (84-94) H 08/23/18 05:38 MCH 32 pg (28-32) 08/23/18 05:38 MCHC 33 % (32-34) 08/23/18 05:38 RDW 12.6 % (13.2-15.2) L 08/23/18 05:38 Plt Count 270 K/mm3 (140-440) 08/23/18 05:38 Lymph % (Auto) 14.5 % (13.4-35.0) 08/23/18 05:38 [place] % (Auto) 13.3 % (0.0-7.3) H 08/23/18 05:38 Eos % (Auto) 3.4 % (0.0-4.3) 08/23/18 05:38 Baso % (Auto) 0.3 % (0.0-1.8) 08/23/18 05:38 Lymph # 1.6 K/mm3 (1.2-5.4) 08/23/18 05:38 [place] # 1.5 K/mm3 (0.0-0.8) H 08/23/18 05:38 Eos # 0.4 K/mm3 (0.0-0.4) 08/23/18 05:38 Baso # 0.0 K/mm3 (0.0-0.1) 08/23/18 05:38 Add Manual Diff Complete 08/22/18 05:53 Total Counted 100 08/22/18 05:53 Seg Neutrophils % 68.5 % (40.0-70.0) 08/23/18 05:38 Seg Neuts % (Manual) 75.0 % (40.0-70.0) H 08/22/18 05:53 0 % 08/22/18 05:53 15.0 % (13.4-35.0) 08/22/18 05:53 Reactive Lymphs % (Man) 0 % 08/22/18 05:53 6.0 % (0.0-7.3) 08/22/18 05:53 3.0 % (0.0-4.3) 08/22/18 05:53 0 % (0.0-1.8) 08/22/18 05:53 0 % 08/22/18 05:53 0 % 08/22/18 05:53 1.0 % 08/22/18 05:53 0 % 08/22/18 05:53 Nucleated RBC % Not Reportable 08/22/18 05:53 Seg Neutrophils # 7.6 K/mm3 (1.8-7.7) 08/23/18 05:38 Seg Neutrophils # Man 9.4 K/mm3 (1.8-7.7) H 08/22/18 05:53 Band Neutrophils # 0.0 K/mm3 08/22/18 05:53 1.9 K/mm3 (1.2-5.4) 08/22/18 05:53 Abs React Lymphs (Man) 0.0 K/mm3 08/22/18 05:53 0.8 K/mm3 (0.0-0.8) 08/22/18 05:53 0.4 K/mm3 (0.0-0.4) 08/22/18 05:53 0.0 K/mm3 (0.0-0.1) 08/22/18 05:53 0.0 K/mm3 08/22/18 05:53 0.0 K/mm3 08/22/18 05:53 0.1 K/mm3 08/22/18 05:53 Blast Cells # 0.0 K/mm3 08/22/18 05:53 WBC Morphology Not Reportable 08/22/18 05:53 Hypersegmented Neuts Not Reportable 08/22/18 05:53 Hyposegmented Neuts Not Reportable 08/22/18 05:53 Hypogranular Neuts Not Reportable 08/22/18 05:53 Not Reportable 08/22/18 05:53 Not Reportable 08/22/18 05:53 Not Reportable 08/22/18 05:53 Not Reportable 08/22/18 05:53 Not Reportable 08/22/18 05:53 Not Reportable 08/22/18 05:53 Consistent w auto 08/22/18 05:53 Not Reportable 08/22/18 05:53 Plt Clumps, EDTA Not Reportable 08/22/18 05:53 Not Reportable 08/22/18 05:53 Not Reportable 08/22/18 05:53 Not Reportable 08/22/18 05:53 Plt Morphology Comment Not Reportable 08/22/18 05:53 RBC Morphology Not Reportable 08/22/18 05:53 Dimorphic RBCs Not Reportable 08/22/18 05:53 Not Reportable 08/22/18 05:53 Not Reportable 08/22/18 05:53 Not Reportable 08/22/18 05:53 Few 08/22/18 05:53 Not Reportable 08/22/18 05:53 Not Reportable 08/22/18 05:53 Not Reportable 08/22/18 05:53 Not Reportable 08/22/18 05:53 Not Reportable 08/22/18 05:53 Not Reportable 08/22/18 05:53 Not Reportable 08/22/18 05:53 Not Reportable 08/22/18 05:53 Not Reportable 08/22/18 05:53 Not Reportable 08/22/18 05:53 Not Reportable 08/22/18 05:53 Not Reportable 08/22/18 05:53 Not Reportable 08/22/18 05:53 Not Reportable 08/22/18 05:53 Not Reportable 08/22/18 05:53 Acanthocytes (Spur) Not Reportable 08/22/18 05:53 Rouleaux Not Reportable 08/22/18 05:53 Not Reportable 08/22/18 05:53 Not Reportable 08/22/18 05:53 Not Reportable 08/22/18 05:53 Not Reportable 08/22/18 05:53 Hem Pathologist Commnt No 08/22/18 05:53 Sodium 143 mmol/L (137-145) 08/23/18 05:38 Potassium 4.5 mmol/L (3.6-5.0) 08/23/18 05:38 Chloride 109.4 mmol/L (98-107) H 08/23/18 05:38 Carbon Dioxide 23 mmol/L (22-30) 08/23/18 05:38 15 mmol/L 08/23/18 05:38 BUN 10 mg/dL (9-20) 05/14/19 05:38 0.8 mg/dL (0.8-1.5) 08/23/18 05:38 Estimated GFR > 60 ml/min 08/23/18 05:38 13 % 08/23/18 05:38 Glucose 100 mg/dL (75-100) 08/23/18 05:38 POC Glucose 87 (70-105) 08/20/18 13:54 5.7 % (4-6) 08/20/18 20:09 Calcium 8.7 mg/dL (8.4-10.2) 08/23/18 05:38 0.50 mg/dL (0.1-1.2) 08/21/18 05:46 AST 20 units/L (5-40) 08/21/18 05:46 ALT 21 units/L (7-56) 08/21/18 05:46 86 units/L (35-129) 08/21/18 05:46 6.4 g/dL (6.3-8.2) 08/21/18 05:46 3.6 g/dL (3.9-5) L 08/21/18 05:46 1.3 % 08/21/18 05:46 Yellow (Yellow) 08/20/18 Unknown Slightly-cloudy (Clear) 08/20/18 Unknown 5.0 (5.0-7.0) 08/20/18 Unknown Ur Specific [place] 1.023 (1.003-1.030) 08/20/18 Unknown <15 mg/dl mg/dL (Negative) 08/20/18 Unknown Neg mg/dL (Negative) 08/20/18 Unknown Neg mg/dL (Negative) 08/20/18 Unknown Neg (Negative) 08/20/18 Unknown Neg (Negative) 08/20/18 Unknown Neg (Negative) 08/20/18 Unknown < 2.0 mg/dL (<2.0) 08/20/18 Unknown Ur Leukocyte Esterase Neg (Negative) 08/20/18 Unknown 1.0 /HPF (0.0-6.0) 08/20/18 Unknown < 1.0 /HPF (0.0-6.0) 08/20/18 Unknown 2+ /HPF 08/20/18 Unknown Vancomycin Trough 14.3 ug/mL (5.0-20.0) 08/23/18 05:38 Presumptive negative 08/20/18 Unknown Presumptive negative 08/20/18 Unknown Ur Barbiturates Screen Presumptive negative 08/20/18 Unknown Ur Phencyclidine Scrn Presumptive negative 08/20/18 Unknown Ur Amphetamines Screen Presumptive negative 08/20/18 Unknown U Benzodiazepines Scrn Presumptive negative 08/20/18 Unknown Presumptive negative 08/20/18 Unknown U Marijuana (THC) Screen Presumptive positive 08/20/18 Unknown Disclamer 08/20/18 Unknown Active Medications - Current Medications Current Medications: Generic Name Dose Route Start Last Admin Trade Name Freq PRN Reason Stop Dose Admin Acetaminophen 650 mg 08/20/18 19:47 Tylenol PO Q4H PRN Pain MILD(1-3)/Fever >100.5/JHA Famotidine 20 mg 08/20/18 22:00 08/23/18 09:20 Pepcid IV 20 mg BID MILLIE Administration Hydromorphone HCl 1 mg 08/21/18 12:41 08/23/18 09:20 Dilaudid IV 1 mg Q6HR PRN Administration Pain , Severe (7-10) Sodium Chloride 1,000 mls @ 75 mls/hr 08/20/18 20:00 08/23/18 05:54 Nacl 0.9% 1000 Ml IV 75 mls/hr DIRECT MILLIE Administration Ampicillin Sodium/Sulbactam Sodium 3 gm in 100 mls @ 100 mls/hr 08/20/18 20:00 08/23/18 07:30 Unasyn/Ns 3 Gm/100 Ml IV 100 mls/hr Q6HR MILLIE Administration Protocol Vancomycin HCl 1,500 mg/ 530 mls @ 333.333 mls/hr 08/21/18 14:00 08/23/18 05:53 Sodium Chloride IV 333.333 mls/hr Q8HR MILLIE Administration Metoclopramide HCl 10 mg 08/20/18 19:47 Reglan IV Q6H PRN Nausea And Vomiting Ondansetron HCl 4 mg 08/20/18 19:47 Zofran IV Q3H PRN Nausea And Vomiting Oxycodone/Acetaminophen 1 tab 08/20/18 19:47 08/21/18 21:57 Percocet 5/325 PO 1 tab Q6H PRN Administration Pain, Moderate (4-6) Sodium Chloride 10 ml 08/20/18 22:00 08/23/18 09:22 Sodium Chloride Flush Syringe 10 Ml IV 10 ml BID MILLIE Administration Sodium Chloride 10 ml 08/20/18 19:47 08/22/18 06:40 Sodium Chloride Flush Syringe 10 Ml IV 10 ml PRN PRN Administration LINE FLUSH
--- NOTE | 2018-08-23 13:58 | Progress Note ---
Assessment and Plan Right knee pain, hemarthrosis Recommend physical therapy for range of motion and gait training Subjective Date of service: 08/23/18 Interval history: Still complaining of right knee pain following aspiration yesterday fluid obtained appeared bloody and without evidence of infection patient also has fairly good range of motion at the knee joint most consistent with a non-septic joint patient has a hemarthrosis advised to observe at this point patient can be up with physical therapy as tolerated Objective Vital signs: Vital Signs - 12hr 08/23/18 08/23/18 04:57 11:55 Temperature 98.2 F 97.3 F L Pulse Rate 89 72 Respiratory 18 19 Rate Blood Pressure 115/57 108/65 O2 Sat by Pulse 97 97 Oximetry - Labs CBC & BMP: 08/23/18 05:38 08/23/18 05:38 Labs: Abnormal lab results 08/23/18 08/23/18 Range/Units 05:38 05:38 WBC 11.1 H (4.5-11.0) K/mm3 MCV 97 H (84-94) fl RDW 12.6 L (13.2-15.2) % [place] % (Auto) 13.3 H (0.0-7.3) % [place] # 1.5 H (0.0-0.8) K/mm3 Chloride 109.4 H (98-107) mmol/L
[2018-08-23 14:18] LABS: Total Cells Counted 100 /mm3
[2018-08-23] MEDS: PERCOCET 5/325 PO PRN (17:15)
[2018-08-24] MEDS: UNASYN/NS 3 GM/100 ML 3 GM/100 ML BAG IV SCH ×4 (00:50→18:36)
[2018-08-24] MEDS: DILAUDID IV PRN (04:17)
[2018-08-24] MEDS: VANCOMYCIN 1,500 MG in NACL 0.9% 500 ML 500 ML IV SCH ×2 (05:54→14:15)
[2018-08-24] MEDS: NACL 0.9% 1000 ML 1,000 ML IV SCH ×2 (06:55→18:40)
[2018-08-24] MEDS: SODIUM CHLORIDE FLUSH SYRINGE 10 ML IV SCH (09:49)
[2018-08-24] MEDS ORDERED: PEPCID PO SCH (10:00)
[2018-08-24 15:06] VITALS: BP 136/87
--- NOTE | 2018-08-24 19:47 | Discharge Summary ---
Providers - Providers Date of Admission: 08/20/18 16:40 Date of discharge: 08/24/18 Attending physician: ELADIA RENE 08/20/18 19:47 Consult to Physician [CONS] Routine Comment: Consulting Provider: GRICEL COOK Physician Instructions: Reason For Exam: right knee septic arthritis 08/23/18 13:58 Physical Therapy Evaluation and Treat [CONS] Routine Comment: Reason For Exam: right knee pain Weight bearing status?: Full wt bearing Assistive devices?: Yes If so list: Crutches [facility] Condition: Stable Hospital course: (1) Septic arthritis of knee, right Current Visit: Yes Status: Acute Qualifiers: Septic arthritis organism: due to unspecified organism Qualified Code(s): M00.9 - Pyogenic arthritis, unspecified Plan to address problem: Arthrocentesis attempted in ED by ED physician-unsuccessful Arthrocentesis attempted by Dr Cook --SOME BLOOD WAS ASPIRATED oRTHO IN FAVOR OF hEMARTROSIS sec to Trauma (2) Syncope Current Visit: Yes Status: Acute Qualifiers: Encounter type: initial encounter Plan to address problem: Vasovagal (3)Hemarthrosis Rest and Analgesics Follow up with Dr Cook Ortho speciality Disposition: [id number] TO HOME OR SELFCARE - Discharge Diagnoses (1) Septic arthritis of knee, right Status: Acute Qualifiers: Septic arthritis organism: due to unspecified organism Qualified Code(s): M00.9 - Pyogenic arthritis, unspecified (2) Syncope Status: Acute Qualifiers: Encounter type: initial encounter (3) DVT prophylaxis Status: Acute Core Measure Documentation - Palliative Care Palliative Care/ Comfort Measures: Not Applicable - Core Measures Any of the following diagnoses?: none Exam - Constitutional Vitals: Temp Pulse Resp BP Pulse Ox 98.4 F 83 18 136/87 100 08/24/18 11:49 08/24/18 11:49 08/24/18 11:49 08/24/18 11:48 08/24/18 11:49 General appearance: Present: no acute distress, well-nourished - EENT Eyes: Present: PERRL ENT: hearing intact, clear oral mucosa - Neck Neck: Present: supple, normal ROM - Respiratory Respiratory effort: normal Respiratory: bilateral: CTA - Cardiovascular Heart rate: 78 Rhythm: regular Heart Sounds: Present: S1 & S2. Absent: rub, click - Extremities Extremities: no ischemia, pulses intact, pulses symmetrical, No edema, abnormal (Rt Knee good ROM,No warmth) Peripheral Pulses: within normal limits - Abdominal General gastrointestinal: Present: soft, non-tender, non-distended, normal bowel sounds Male genitourinary: Present: normal - Integumentary Integumentary: Present: clear, warm, dry - Musculoskeletal Musculoskeletal: gait normal, strength equal bilaterally - Psychiatric Psychiatric: appropriate mood/affect, intact judgment & insight - Neurologic Neurologic: CNII-XII intact, moves all extremities Plan Activity: no restrictions Diet: regular Follow up with: [facility] [Other] - 3-5 Days GRICEL COOK MD [Staff Physician] - 7 Days
== END 2018-08-24 20:22 | disposition home or self-care (01) | DRG 549 ==
LOC: ED 13:43 → 3A 16:40
PROVIDERS: ADMIT Internal Medicine; ATTEND Internal Medicine
PROC: 0SJCXZZ Inspection of Right Knee Joint, External Approach (ICD-10-PCS; 2018-08-20)
PROC: 0S9C3ZZ Drainage of Right Knee Joint, Percutaneous Approach (ICD-10-PCS; principal; 2018-08-22)
DX: M00.9 Pyogenic arthritis, unspecified (principal); M25.061 Hemarthrosis, right knee; R55 Syncope and collapse; D72.829 Elevated white blood cell count, unspecified; F17.200 Nicotine dependence, unspecified, uncomplicated; Z71.6 Tobacco abuse counseling
CPT/HCPCS: 36415; 80048; 80053; 80202; 80307; 81001; 82962; 83036; 85007; 85025; 85048; 87040; 87116; 87591; 89051; 93005; 93010; 96365; 96366; 96375; G0378; J0295; J0696; J1170; J3370; J7030; J7040